=== PATIENT | female | born 1960 | race Hispanic/Latino ===

== ENCOUNTER 2025-03-02 12:24 | Outpatient (CLI) | payer OTHER | END 2025-03-02 12:25 | disposition home or self-care (01) | LOC: CSHULT 12:24 | PROVIDERS: ATTEND Family Medicine | DX: I82.402 Acute embolism and thrombosis of unspecified deep veins of left lower extremity (principal); M79.89 Other specified soft tissue disorders; M71.22 Synovial cyst of popliteal space [Baker], left knee | CPT/HCPCS: 93970 ==